=== PATIENT | male | born 1955 | race Caucasian/White ===

== ENCOUNTER → 2018-06-13 | Outpatient (CLI) | payer OTHER ==
[~2018-06-13] MED LIST: ADDERALL XR 2020 MG PO; ASPIR 8181 MG PO; AXIRON90 ML TD; CENTRUM SILVER1 EAC2 PO; CO Q-10100 MG PO; CRESTOR10 MG PO; FISH OIL 1,001000 M2 PO; LISINOPRIL10 MG PO; METHYLPHENIDATE5 MG PO; MOBIC15 MG PO; OMEPRAZOLE40 MG PO; ZOLPIDEM TARTRA10 MG PO
== END ==
LOC: CAT 14:42
DX: Z13.6 Encounter for screening for cardiovascular disorders (principal); Z82.49 Family history of ischemic heart disease and other diseases of the circulatory system

== ENCOUNTER → 2018-09-06 | Outpatient (CLI) | payer BC ==
[~2018-09-06] VITALS: Ht 177.8 cm; Wt 97.1 kg
[~2018-09-06] MED LIST changes: +ALLOPURINOL 10100 M1 PO; +AZITHROMYCIN 2250 MG PO; +INDOMETHACIN 5050 M1 PO; +LISINOPRIL5 MG PO; +NORCO 5-325 TA1 EACH PO; +ROBAXIN 750 MG750 M1 PO; +TESTOSTERO30 MG/1.5 TRANSDERM
--- NOTE | ~2018-09-06 | HPC ---
[facility] [place] [address] PAIN MANAGEMENT CONSULTATION Name: SHIELA VERDUGO Ketan Room #: REG NEO Salazar#: [id number] Admission: 09/06/18 ������������������ Attend Phys: Jae Deng MD Discharge: ������������������ Date of : 53 Report #: [id number] THIS REPORT FOR: //name// CC: Bib Deng [facility] DATE OF SERVICE: 09/06/2018 CHIEF COMPLAINT: Right-sided cervicalgia with constant gnawing pain. 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 Haque. He has constant pain that shoots from his neck into his right shoulder and also radiates up into the occiput region. It is worse with any work of his upper body and he feels crepitus in his neck. He has attempted to relieve pain with medication, currently on indomethacin 50 mg b.i.d. in addition to celecoxib 200 mg daily. I do not recommend him staying on 2 anti-inflammatories, even though the AGUILAR-2 inhibiting Celebrex is different from the indomethacin. There are some renal concerns I think with 2 nonsteroidal anti-inflammatory drugs and I have asked him to stop his Celebrex. He has some hydrocodone, but takes it carefully no more than 1-3 per day. It gets about 6 hours of pain relief. He also has methocarbamol and he is taking 2 tablets per day. All medications include as well as the ones above, lisinopril, omeprazole, rosuvastatin, and allopurinol. ALLERGIES: None. PAST MEDICAL HISTORY: Remarkable for hypertension and he has had significant shoulder problems, having 2 rotator cuff surgeries on the left and one on the right. He had a hernia repair in 2017. 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 REVIEW OF SYSTEMS: Positive for fatigue, weakness, headaches, hearing loss, change in bowel movements, constipation, frequent urination, nocturia. He complains of some nervousness and insomnia. PHYSICAL EXAMINATION: GENERAL: He is a pleasant 62-year-old gentleman. VITAL SIGNS: Blood pressure is 117/76, heart rate 95. HEENT: His pupils are equal, round, reactive to light. EOMs are intact. Mucous membranes are moist. NECK: Shows some restrictions in motion, particularly extension, right lateral [facility] [address] [place] [address] PAIN MANAGEMENT CONSULTATION Name: SHIELA VERDUGO Room #: REG NEO Martin#: [id number] Admission: 09/06/18 ������������������ Attend Phys: Jae Deng MD Discharge: ������������������ Date of : 53 Report #: [id number] rotation and right lateral tilt. There is tenderness overlying the upper cervical facet joints from a lateral position. MUSCULOSKELETAL: There is good strength in the biceps, triceps and senior linux unix engineer strength. Sensation is intact throughout the upper extremities with no numbness or tingling. Deep tendon reflexes are diminished throughout the upper and lower extremities. X-RAYS REVIEW: Degenerative changes throughout the cervical spine and I reviewed the x-rays with him. As Germania Hayden APN observed in her review of the x-rays, there is a C3-C4 facet joint on the right that has a bright signal in the joint with knuckling and bulging. There is also, however, degenerative disk disease with central bulging at C2-C3 and there is fairly significant degenerative disk disease at C5-C6, C6-C7, which appears to have evidence of old herniation at that level. I do not believe that his pain is related so much to the lower cervical disk degeneration and agree that his physical exam and history suggests that he has right cervical facet arthropathy and cervical spondylosis. ASSESSMENT AND PLAN: I have recommended that we treat the cervical facet joint with bupivacaine and Decadron in an attempt to provide some relief. This may provide diagnostic information as well. PROCEDURE NOTE: After informed consent, the patient was taken to the fluoroscopic suite for treatment. He was placed prone. The skin prepped with ChloraPrep. Skin anesthetized over the right neck with 1% lidocaine. Using biplanar fluoroscopic views, I advanced the needle carefully into the lateral facet joint. I injected 0.25 mL of Omnipaque and demonstrated outstanding arthrogram. This was then followed by 0.5 mL of 0.5% bupivacaine and 2 mg of triamcinolone. I was unable to inject more due to the tightness of the joint. He tolerated the procedure well and was taken to recovery room and observed for about 45 minutes before discharged. Pain was reduced slightly. I will be anxious to see if he receives good relief with this facet injection given the excellent arthrogram obtained during the performance of the injection. Followup visit is planned in 1-2 months for possible repeat injection. ��������������������������������������������� ���������������������������������������� By: ��������������������������������������������� [id number] Jae Deng MD /nt
[2018-09-06 11:11] VITALS: BP 117/76
--- NOTE | 2018-09-06 11:12 | NUR ---
Pain Clinic Assessment: 1. History of Osteoarthritis: Not Applicable History of Rheumatoid Arthritis: Not Applicable 2. Height: 5 ft. 10 in. 177.8 cm. Weight: 214.0 lb. oz. 97.070 kg. Patient's BMI: 30.7 3. Vital Signs: BP: 117/76 Pulse: 95 Resp: 18 Temp: 02 Sat: 94 ECG Mon: 4. Pain Intensity: 9 5. Fall Risk: Dizziness: N Needs help standing or walking: N Fallen in the last 3 months: N Fall risk comments: 6. Patient on Blood Thinner: None 7. History of Hypertension: Y 8. Opioid Therapy greater than 6 weeks: N Opiate Contract Signed: 9. Risk Assessment Tool Provided: ALBAN 10. Functional Assessment Tool: 11. Recreational Drug Use: Never Drug Type: Tobacco Use: Never Smoker Tobacco Type: Amount or Packs/day: How Many Years: Alcohol Use: Yes Frequency: Daily Quant: 3-4 BEERS
== END | disposition home or self-care (01) ==
LOC: PAIN 06:48
DX: M47.812 Spondylosis without myelopathy or radiculopathy, cervical region (principal); G89.29 Other chronic pain; I10 Essential (primary) hypertension; M1A.9XX1 Chronic gout, unspecified, with tophus (tophi); M19.90 Unspecified osteoarthritis, unspecified site; Z98.890 Other specified postprocedural states; Z79.899 Other long term (current) drug therapy; Z79.891 Long term (current) use of opiate analgesic

== ENCOUNTER → 2018-10-11 | Outpatient (CLI) | payer BC, OTHER ==
[~2018-10-11] VITALS: Ht 177.8 cm; Wt 96.4 kg
[~2018-10-11] MED LIST changes: +HYDROCODON-ACE1 EAC7 PO
[2018-10-11 09:20] VITALS: BP 146/87
--- NOTE | 2018-10-11 09:30 | NUR ---
Pain Clinic Assessment: 1. History of Osteoarthritis: Not Applicable History of Rheumatoid Arthritis: Not Applicable 2. Height: 5 ft. 10 in. 177.8 cm. Weight: 212.6 lb. oz. 96.435 kg. Patient's BMI: 30.5 3. Vital Signs: BP: 146/87 Pulse: 93 Resp: 18 Temp: 02 Sat: 96 ECG Mon: 4. Pain Intensity: 5 5. Fall Risk: Dizziness: N Needs help standing or walking: N Fallen in the last 3 months: N Fall risk comments: 6. Patient on Blood Thinner: None 7. History of Hypertension: Y 8. Opioid Therapy greater than 6 weeks: N Opiate Contract Signed: 9. Risk Assessment Tool Provided: OGilbertoLOW 10. Functional Assessment Tool: 11. Recreational Drug Use: Never Drug Type: Tobacco Use: Never Smoker Tobacco Type: Amount or Packs/day: How Many Years: Alcohol Use: Yes Frequency: Daily Quant: 3-4 BEERS
--- NOTE | 2018-10-23 17:25 | HPC ---
[facility] [address] [place] [address] PAIN MANAGEMENT CONSULTATION Name: SHIELA VERDUGO Room #: REG RADHAJoanne Mccarthy.#: [id number] Admission: 10/11/18 ������������������ Attend Phys: Jae Deng MD Discharge: ������������������ Date of : 53 Report #: [id number] THIS REPORT FOR: //name// CC: Bib Deng DATE OF SERVICE: 10/11/2018 CHIEF COMPLAINT: Followup visit for cervicalgia with multilevel degenerative changes, facet arthropathy and perhaps some measure of cervical radiculopathy. The patient returns to pain clinic today after a right isolated C3-C4 facet injection under fluoroscopic guidance. He had a very nice response. He was pain free for a period of time and then the pain began to return, but he reports that he is still about 40% better now over 60 days out from his initial injection. He is here today for repeat injection. We discussed his MRI. His is with him again today. We discussed the long-term management of this condition and I am hopeful that tincture of time will provide some additional relief. Gentle range of motion exercises remain indicated. We talked about medications including nonsteroidal anti-inflammatory drugs and the use of modest amounts of hydrocodone when the pain is severe. I have agreed to provide him another prescription of hydrocodone 5/325, 60 tablets. He will carefully safeguard these medications. We discussed the opioid crisis in [place]. PHYSICAL EXAMINATION: GENERAL: He is a pleasant gentleman. VITAL SIGNS: Blood pressure is 135/85. He has pain with neck extension. Rotational movements also cause pain. There is tenderness on the right side of his neck overlying the previously described C3-C4 arthritic facet joint. He has some pain that radiates into the neck and shoulder, but no further. No weakness, no numbness or tingling. IMPRESSION: Cervicalgia with facet arthropathy. Some measure of cervical radiculopathy also may be present. There is moderate to large central disk herniation with effacement of the ventral sac at C3-C4 as well as the facet arthrosis on the right with fluid in the right facet joint and osteophytic spurring. PROCEDURE: C3-C4 facet injection under fluoroscopic guidance. PROCEDURE: After informed consent, he was taken to the fluoroscopic suite where he was placed prone, skin prepped with ChloraPrep. Skin anesthetized over the [address] [address] PAIN MANAGEMENT CONSULTATION Name: SHIELA VERDUGO Room #: MICHELLE Salazar#: [id number] Admission: 10/11/18 ������������������ Attend Phys: Jae Deng MD Discharge: ������������������ Date of : 53 Report #: [id number] C3-C4 facet. Using biplanar fluoroscopic views, I gently advanced 25-gauge needle into the facet joint capsule from the lateral approach. After negative aspiration, I injected 0.25 mL of Omnipaque, which demonstrated spread of dye along the capsule and into the facet. I did not obtain his dramatic arthrogram as we did previously, but there was definitely spread of dye within the facet joint. It was then followed by 0.5 mL of bupivacaine and 20 mg of triamcinolone. He tolerated the procedure well. He was observed in recovery room for a short time and discharged with a pain score of 0. Followup visit planned in 2-3 months. ��������������������������������������������� <ELECTRONICALLY SIGNED> ���������������������������������������� By: Jae Deng MD ��������������������������������������������� 10/23/18 1725 1800 [id number] Jae Deng MD /nt
== END | disposition home or self-care (01) ==
LOC: PAIN 06:46
DX: M50.11 Cervical disc disorder with radiculopathy, high cervical region (principal); M12.88 Other specific arthropathies, not elsewhere classified, other specified site; Z79.899 Other long term (current) drug therapy

== ENCOUNTER → 2018-11-12 | Outpatient (CLI) | payer BC, OTHER ==
[~2018-11-12] VITALS: Ht 177.8 cm; Wt 95.5 kg
[~2018-11-12] MED LIST changes: +CELEBREX 200 M200 M1 PO
--- NOTE | ~2018-11-12 | HPC ---
[facility] [place] [address] PAIN MANAGEMENT CONSULTATION Name: SHIELA VERDUGO Room #: REG NEO Salazar#: [id number] Admission: 11/12/18 ������������������ Attend Phys: Jae Deng MD Discharge: ������������������ Date of : 53 Report #: [id number] THIS REPORT FOR: //name// CC: Bib Gudino MD DATE OF SERVICE: 11/12/2018 Followup visit for cervicalgia secondary to cervical spondylosis with isolated C3-C4 facet arthropathy. The patient returns to pain clinic today for repeat facet injection. He has had 2 previous injections, both providing relief. The first provided substantial relief for the first 2-3 weeks, second took about a week to work, but also has provided some relief. He is better overall than he was before we began the injections. I would like to repeat the injection, today is to be the third in a series. We will see him back for a while. He has a small amount of hydrocodone, which was provided by Dr. Gudino and I also provided him with a prescription for 30 tablets. He uses it infrequently no more than 3-4 times a week. We had a lengthy discussion about the nonsteroidal anti-inflammatory drugs and AGUILAR-2 inhibiting medication. He might benefit from rotation back to Celebrex over meloxicam. He also some indomethacin, which he uses intermittently for gout. We have talked about GI, cardiac, and renal side effects and precautions and proper method of using these medications for treatment of both his cervicalgia and his other issues with arthritis. PHYSICAL EXAMINATION: GENERAL: He is a pleasant 62-year-old, alert and oriented. No signs of depression or anxiety. VITAL SIGNS: His blood pressure is 141/87, heart rate 80, and respirations 16. He has some pain with rotational movement, some mild crepitus on the right. Localized tenderness in the area overlying the identified cervical facet C3-C4. He has some pain with neck extension. He has no radicular symptoms at this time. IMPRESSION: 1. C3-C4 facet arthropathy and cervical spondylosis. 2. Large central herniated disk with effacement of the thecal sac at C3-C4. This may be playing some role in his central pain. RECOMMENDATIONS: C3-C4 facet injection on the right under fluoroscopic guidance. [address] [address] PAIN MANAGEMENT CONSULTATION Name: SHIELA VERDUGO Room #: REG NEO Salazar#: [id number] Admission: 11/12/18 ������������������ Attend Phys: Jae Deng MD Discharge: ������������������ Date of : 53 Report #: [id number] He was taken to fluoroscopic suite, placed prone, skin prepped with ChloraPrep. Skin anesthetized over the right C3-C4 facet joint. Using a lateral approach, I gently advanced a 25-gauge 2-inch needle into position using AP and lateral views. Needle was resting on the lateral capsule of the facet joint. After negative aspiration, I injected 0.25 mL of Omnipaque and demonstrated extravascular spread along the joint capsule with some extension into the joint itself. It was then followed by 2 mL of solution, which included 4 mg of dexamethasone and 1 mL of 0.5% bupivacaine. He tolerated the procedure well and no complications. He was observed for 30 minutes and discharged. Followup visit planned on an as needed basis. ��������������������������������������������� ���������������������������������������� By: ��������������������������������������������� [id number] Jae Deng MD /nt
[2018-11-12 10:35] VITALS: BP 141/87
--- NOTE | 2018-11-12 10:57 | NUR ---
Pain Clinic Assessment: 1. History of Osteoarthritis: Not Applicable History of Rheumatoid Arthritis: Not Applicable 2. Height: 5 ft. 10 in. 177.8 cm. Weight: 210.6 lb. oz. 95.528 kg. Patient's BMI: 30.2 3. Vital Signs: BP: 141/87 Pulse: 80 Resp: 16 Temp: 02 Sat: 97 ECG Mon: 4. Pain Intensity: 5 5. Fall Risk: Dizziness: N Needs help standing or walking: N Fallen in the last 3 months: N Fall risk comments: 6. Patient on Blood Thinner: None 7. History of Hypertension: Y 8. Opioid Therapy greater than 6 weeks: N Opiate Contract Signed: 9. Risk Assessment Tool Provided: O-LOW 10. Functional Assessment Tool: 11. Recreational Drug Use: Never Drug Type: Tobacco Use: Never Smoker Tobacco Type: Amount or Packs/day: How Many Years: Alcohol Use: Yes Frequency: Quant:
== END | disposition home or self-care (01) ==
LOC: PAIN 06:50
DX: M50.21 Other cervical disc displacement, high cervical region (principal); M47.812 Spondylosis without myelopathy or radiculopathy, cervical region; G89.29 Other chronic pain; Z79.891 Long term (current) use of opiate analgesic; Z98.890 Other specified postprocedural states; Z79.899 Other long term (current) drug therapy

== ENCOUNTER → 2019-05-02 | Outpatient (CLI) | payer BC, OTHER ==
[~2019-05-02] VITALS: Ht 177.8 cm; Wt 98.1 kg
--- NOTE | ~2019-05-02 | HPC ---
[facility] [address] [place] [address] PAIN MANAGEMENT CONSULTATION Name: SHIELA VERDUGO Room #: REG NEO Salazar#: [id number] Admission: 05/02/19 Attend Phys: Jae Deng MD Discharge: Date of : 53 Report #: [id number] THIS REPORT FOR: //name// CC: Bib Deng DATE OF SERVICE: 05/02/2019 Followup visit for right cervical facet pain. The patient is a pleasant 63-year-old, who I have treated successfully in the past with C3-C4 facet injection. An injection was performed with dexamethasone and bupivacaine under fluoroscopic guidance. His last injection on 11/12/2018 provided 3-4 months of excellent pain relief. Pain is now returning. He has scored the intensity level of 5-6 and is affecting his sleep. He is here today for a repeat injection. I reviewed his MRI once again. I do not have the films, but the report discussed his multilevel degenerative disk changes with a large central disk herniation at C3-C4 and a mild extradural ventral cord effacement at C5-C6 and C6-C7. There is some foraminal stenosis on the right. He has localized tenderness overlying the C3-C4 joint and most of the pain is just right there. It does not act as a radicular pain would and he has responded to treatment. We will repeat an injection today. MEDICATIONS: Celecoxib, testosterone, allopurinol, lisinopril, and omeprazole and Zetia is new since his last visit. ALLERGIES: None. PAST MEDICAL HISTORY: He sees Dr. Bazzi because of an exceptionally high calcium score, but has not had any cardiac events. He denies chest pain or shortness of breath. He has a history of right shoulder problems with previous surgery. SOCIAL HISTORY: Works fulltime. Denies use of tobacco. Drinks alcohol once or twice daily without excess. Denies use of marijuana or any recreational or medicinal illicit substances. PHYSICAL EXAMINATION: GENERAL: Pleasant 63-year-old. VITAL SIGNS: Blood pressure of 126/87, heart rate 80, respirations 16, and O2 sat is 99. His BMI is 31. [facility] [address] [place] [address] PAIN MANAGEMENT CONSULTATION Name: SHIEAL VERDUGO Room #: REG [facility].#: [id number] Admission: 05/02/19 Attend Phys: Jae Deng MD Discharge: Date of : 53 Report #: [id number] MUSCULOSKELETAL: He moves independently from sitting to standing position. His gait is nonantalgic. Neck range of motion elicits pain in the area overlying the C3-C4 facet joint. There is no radiating pain. Strength and sensation in the upper and lower extremities is normal subjectively and objectively. IMPRESSION: Cervical spondylosis with [id number] central disk herniation at C3-C4 and osteophytic spurring of the right facet joint at C3-C4. Other multilevel degenerative changes are noted. RECOMMENDATION: Cervical facet injection, C3-C4 on the right under fluoroscopic guidance. PROCEDURE: After informed consent, he was taken to the fluoroscopic suite and placed in the prone position. The skin was prepped on the right. Biplanar fluoroscopic views were utilized to perform the injection and the skin was anesthetized overlying the lateral mass of the C3-C4 facet joint. A 25-gauge needle was then gently advanced into lateral capsule of C3-C4 facet. After negative aspiration, I injected 0.25 mL of Omnipaque. There was no vascular uptake and spread of dye was seen along the joint capsule. This was then followed by 1 mL of 0.5% bupivacaine and 4 mg of dexamethasone. He tolerated the procedure well. There were no complications. He was taken to recovery room for observation. He was discharged in good condition with a followup visit planned as needed. No medications were ordered. By: [id number] Jae Deng MD /nt
[2019-05-02 09:39] VITALS: BP 126/87
--- NOTE | 2019-05-02 09:49 | NUR ---
Pain Clinic Assessment: 1. History of Osteoarthritis: NECK History of Rheumatoid Arthritis: Not Applicable 2. Height: 5 ft. 10 in. 177.8 cm. Weight: 216.2 lb. oz. 98.068 kg. Patient's BMI: 31.0 3. Vital Signs: BP: 126/87 Pulse: 80 Resp: 16 Temp: 02 Sat: 99 ECG Mon: 4. Pain Intensity: 5-6 5. Fall Risk: Dizziness: N Needs help standing or walking: N Fallen in the last 3 months: N Fall risk comments: 6. Patient on Blood Thinner: None 7. History of Hypertension: Y 8. Opioid Therapy greater than 6 weeks: N Opiate Contract Signed: 9. Risk Assessment Tool Provided: ALBAN 10. Functional Assessment Tool: 11. Recreational Drug Use: Never Drug Type: Tobacco Use: Never Smoker Tobacco Type: Amount or Packs/day: How Many Years: Alcohol Use: Yes Frequency: Daily Quant: 1-2
== END | disposition home or self-care (01) ==
LOC: PAIN 06:41
DX: M47.812 Spondylosis without myelopathy or radiculopathy, cervical region (principal); M50.21 Other cervical disc displacement, high cervical region; M25.78 Osteophyte, vertebrae; Z98.890 Other specified postprocedural states; Z79.899 Other long term (current) drug therapy

== ENCOUNTER → 2020-01-21 | Outpatient (CLI) | payer OTHER | LOC: SJCVCIMAG 09:27 | PROVIDERS: ATTEND Internal Medicine Cardiovascular Disease | DX: I25.10 Atherosclerotic heart disease of native coronary artery without angina pectoris (principal); E78.5 Hyperlipidemia, unspecified; I10 Essential (primary) hypertension; Z79.899 Other long term (current) drug therapy ==

== ENCOUNTER → 2020-09-28 | Outpatient (CLI) | payer OTHER | LOC: SJCVCIMAG 07:24 | PROVIDERS: ATTEND Internal Medicine Cardiovascular Disease | DX: I08.2 Rheumatic disorders of both aortic and tricuspid valves (principal); I49.3 Ventricular premature depolarization; Z79.899 Other long term (current) drug therapy ==